=== PATIENT | male | born 1960 | race Caucasian/White ===

== ENCOUNTER → 2020-09-19 | Outpatient (CLI) | payer MEDICAID ==
[~2020-09-19] VITALS: Ht 182.9 cm; Wt 97.3 kg
[~2020-09-19] MED LIST: ATOR40TA71 PO; GLIP5 PO; LISI-660 PO; METF-960 PO; SODIUM CHLORIDE 0.9% 1,000 ML IV ONE; SODIUM CHLORIDE 0.9% 1,000 ML ONE
[2020-09-19 07:43] LABS: COVID AG,FIA SOURCE NASOPHARYNGEAL
== END | disposition home or self-care (01) ==
LOC: LABMN 06:40 → EDSTATUS 09-24 14:00
PROVIDERS: ATTEND Internal Medicine Gastroenterology
DX: Z01.818 Encounter for other preprocedural examination (principal); Z20.828 Contact with and (suspected) exposure to other viral communicable diseases
CPT/HCPCS: 87426; C9803; J7030

== ENCOUNTER 2020-10-08 11:56 | Day surgery (SDC) | payer MEDICAID ==
[2020-10-05 15:28] LABS: COVID AG,FIA SOURCE NASOPHARYNGEAL
[~2020-10-08] VITALS: Ht 182.2 cm; Wt 93.2 kg
[2020-10-08] MEDS ORDERED: PROPOFOL 1% 20 ML VIAL IVP ONE (11:57)
[2020-10-08] MEDS ORDERED: LIDOCAINE/PF 2% 5 ML VIAL IM ONE (11:57)
[2020-10-08 12:48] LABS: GLUCOMETER DEV NAME(LOC) SDS.; GLUCOSE,POINT OF CARE 156 MG/DL (70-110)
== END 2020-10-08 16:15 | disposition home or self-care (01) ==
LOC: SURGERY 11:56
PROVIDERS: ATTEND Internal Medicine Gastroenterology
DX: D12.3 Benign neoplasm of transverse colon (principal); E11.9 Type 2 diabetes mellitus without complications; I10 Essential (primary) hypertension; M17.11 Unilateral primary osteoarthritis, right knee; E78.00 Pure hypercholesterolemia, unspecified; Z79.899 Other long term (current) drug therapy; Z98.890 Other specified postprocedural states; Z72.89 Other problems related to lifestyle
CPT/HCPCS: 45380; 82962; 87426; 88305; C1769; C9803; J2704; J3490; J7030